=== PATIENT | female | born 1980 | race Two or more races ===

== ENCOUNTER 2017-09-10 13:45 | Emergency (ER) | payer MEDICAID ==
[~2017-09-10] VITALS: Ht 160 cm; Wt 120.0 kg
[2017-09-10 14:03] VITALS: BP 122/65
[2017-09-10 15:13] LABS: CLARITY URINE CLEAR (CLEAR); COLOR URINE YELLOW (YELLOW); KETONES URINE NEGATIVE (NEGATIVE); LEUKOCYTE ESTERASE URINE NEGATIVE (NEGATIVE); NITRITE URINE NEGATIVE (NEGATIVE); OCCULT BLOOD URINE NEGATIVE (NEGATIVE); PROTEIN URINE NEGATIVE (NEGATIVE); SPECIFIC GRAVITY URINE 1.028 (1.005-1.030)
[2017-09-10 15:23] LABS: BASOPHILS % 0.4 % (0.0-2.0); EOSINOPHILS % 4.6 % (0.0-5.0); HEMATOCRIT. 30.9 % (36.0-48.0); LYMPHOCYTES % 19.9 % (20.0-50.0); MEAN CORPUSCULAR HEMOGLOBIN 25.4 pg (28.0-32.0); MEAN CORPUSCULAR VOLUME 78.4 fL (81.0-99.0); MEAN PLATELET VOLUME 10.3 fl (7.4-10.4); MONOCYTES % 14.1 % (2.0-8.0); PLATELET 108 x1000/uL (130-400); RED BLOOD CELL COUNT 3.94 mill/uL (4.2-5.4); RED CELL DISTRIBUTION WIDTH 16.9 % (11.6-14.6)
[2017-09-10 15:29] LABS: CHLORIDE 110 mEq/L (98-107)
[2017-09-10 15:30] LABS: PROTHROMBIN TIME 10.4 sec (9.4-11.6)
== END 2017-09-10 21:36 | disposition left against medical advice (07) ==
LOC: ER 15:49
DX: J45.901 Unspecified asthma with (acute) exacerbation (principal); R10.13 Epigastric pain; M79.89 Other specified soft tissue disorders
CPT/HCPCS: 36415; 80053; 81003; 83690; 83880; 85025; 85610; 99284

== ENCOUNTER 2018-04-07 04:49 | Observation (INO) | payer MEDICAID ==
[~2018-04-07] VITALS: Ht 160 cm; Wt 129.3 kg
== END 2018-04-07 10:00 | disposition home or self-care (01) ==
LOC: L&D 04:49
PROVIDERS: ADMIT Specialist; ATTEND Specialist
DX: O62.9 Abnormality of forces of labor, unspecified (principal); O09.523 Supervision of elderly multigravida, third trimester; Z3A.37 37 weeks gestation of pregnancy
CPT/HCPCS: 76815; 76818; 99281; G0378